=== PATIENT | male | born 1950 | race Caucasian/White ===

== ENCOUNTER 2023-12-19 04:53 | Inpatient (IN) | payer MEDICARE, OTHER, SELFPAY ==
[2023-12-19] VITALS (25 sets, daily range): BP systolic 101–143; BP diastolic 61–86; BMI 23.0
[2023-12-19] MEDS: MORPHINE SULFATE 2 MG IV (01:46)
[2023-12-19 01:57] LABS: % Basophils 0.1 % (0-2); % Immature Granulocytes 0.2 % (0-0.5); % Lymphocytes 6.4 % (20.5-51.1); % Monocytes 5.4 % (1.7-9.3); % Neutrophils 87.9 % (42.2-75.2); Absolute Lymphocytes 0.5 10^3/uL (1.2-3.4); Absolute Monocytes 0.5 10^3/uL (0.1-0.6); Absolute Neutrophils 7.3 10^3/uL (1.4-6.5); Hematocrit 31.2 % (39.0-52.0); Hemoglobin 11.4 g/dL (13.0-18.0); Mean Corp Hgb Conc. 36.5 g/dL (33.0-37.0); Mean Corpuscular Hgb 32.2 pg (27.0-31.0); Mean Corpuscular Volume 88.1 fL (80.0-94.0); Mean Platelet Volume 8.1 fL (7.4-10.4); Nucleated Red Blood Cells % 0 % (-); Platelet Count 134 10^3/uL (130-400); Red Blood Cell Count 3.54 10^6/uL (4.70-6.10); Red Cell Dist. Width 13.3 % (11.5-14.5); White Blood Cell Count 8.3 10^3/uL (4.8-10.8)
[2023-12-19 02:12] LABS: ALT (SGPT) < 10 U/L (0-50); AST (SGOT) 19 U/L (17-59); Albumin 4.4 g/dl (3.5-5.0); Alkaline Phosphatase 54 U/L (38-126); Blood Urea Nitrogen 29 mg/dl (9-20); Calcium 9.8 mg/dl (8.4-10.2); Carbon Dioxide 19 mmol/L (22-30); Chloride 108 mmol/L (98-107); Estimated Creatinine Clearance 87 ml/min; Glucose 127 mg/dl (70-99); Potassium 4.2 mmol/L (3.5-5.1); Sodium 136 mmol/L (135-145); Total Bilirubin 0.7 mg/dl (0.2-1.3); Total Protein 6.5 g/dl (6.3-8.2); eGFR > 60.00
[2023-12-19] MEDS: DILAUDID 1 MG IV ×2 (02:29→05:48)
[2023-12-19] MEDS: ZOFRAN 4 MG IV (02:29)
[2023-12-19] MEDS: NSS 1000 IV ×3 (02:29→12:29)
--- NOTE | 2023-12-19 02:33 | ED.GENMED ---
History of Present Illness
General
Chief Complaint: Fall
Source: patient
Exam Limitations: none
Time Seen by Provider: 12/19/23 02:16
History of Present Illness
History of Present Illness:
This is a 73 year old male that comes in by ambulance with c/o right hip pain. States that his roommate was in the [facility] for about 45 min. The patient states that he has an over active bladder and he couldn't wait any longer. States that he got up and
ran to the [place] and tripped. States that he landed on his right hip on the hard concrete. States that he did not hit his head or have any LOC. Denies any fever, chills, chest pain, SOB, abd pain, nausea, vomiting, diarrhea, headache, dizziness,
urinary burning.
Past History
Past History
ED Past Medical History: CVA and Other (Hepatitis C, alcohol abuse)
ED Past Surgical History: Orthopedic (left knee replacement)
Social History
Tobacco: Former smoker
Alcohol: Occasional
Drug: None
Personal: Single
Living: halfway ([facility] )
Employment: Employed
Family History
Family History: CAD
Review of Systems
Review of Systems
All Other Systems: ROS reviewed and negative except as documented in HPI and ROS
Constitutional: Reports no symptoms; Denies fever or chills
EENT: Reports no symptoms
Respiratory: Reports no symptoms; Denies cough or trouble breathing
Cardiac: Reports no symptoms; Denies chest pain
ABD/GI: Reports no symptoms; Denies abdominal pain, nausea, vomiting or diarrhea
: Reports no symptoms; Denies dysuria, frequency or urgency
Musculoskeletal: Reports joint pain (Right hip pain)
Skin: Reports no symptoms
Neurological: Reports no symptoms; Denies dizzy or headache
Psychiatric: Reports no symptoms
Phy Exam
General Physical Exam
General Presentation: mild distress
General age: appears stated age
General Skin: warm and dry
General Habitus: elderly
General Mental: alert
General Hydration: appears well hydrated
ENT Exam
ENT Exam: TM's normal, pharynx normal and neck supple
Eye Exam
Eye Exam: EOMI
Cardiovascular Exam
Cardiovascular Exam: regular rate/rhythm, no edema and normal peripheral pulses
Pulmonary Exam
Pulmonary Exam: lungs clear, no respiratory distress, no rales, chest non tender, no crackles, no rhonchi, no wheezing and no cough
Gastrointestinal Exam
Gastrointestinal Exam: normal bowel sounds, non tender, soft, no organomegaly, no pulsatile mass and non distended
Musculoskeletal Exam
Musculoskeletal Exam: no edema and other (Right leg shortened and externally rotated. Obvious deformity. )
Skin Exam
Skin Exam: normal color, warm/dry, no rash and no petechia
Course
Orders/Labs/Results
Orders:
Orders
12/19/23 01:32
Hip, Right 2-3 Views [CR Hip - RT w/wo Pel 2-3 Vw*] Urgent
Comment:
Reason For Exam: pain, injury, S/P fall
Include a pelvis x-ray?: Yes
12/19/23 01:39
Morphine Sulfate 2 mg .ROUTE .STK-MED ONE
12/19/23 01:45
Morphine Sulfate 2 mg IV NOW STA
12/19/23 01:49
CMP [Comprehensive Metabolic Panel] Urgent
Complete Blood Count/With Diff Urgent
12/19/23 02:24
Ondansetron Injectable [Zofran] 4 mg .ROUTE .STK-MED ONE
12/19/23 02:25
HYDROmorphone [Dilaudid] 1 mg .ROUTE .STK-MED ONE
12/19/23 02:26
0.9% Sodium Chloride 1000 ml [Nss] 1,000 ml IV BOLUS
HYDROmorphone [Dilaudid] 1 mg IV NOW STA
Ondansetron Injectable [Zofran] 4 mg IV NOW STA
12/19/23 02:32
Consult Orthopedic [ORTHOPEDIC CONSULT] Urgent
Consulting Provider: Venkata Linder
Was physician already notified: Yes
12/19/23 02:44
Electrocardiogram (*1) Urgent
Reason for Study: PreOp
EKG- Treatment ONCE
Abnormal Lab Results
12/19/23
01:49
RBC 3.54 L 10^6/uL
(4.70-6.10)
Hgb 11.4 L g/dL
(13.0-18.0)
Hct 31.2 L %
(39.0-52.0)
MCH 32.2 H pg
(27.0-31.0)
Absolute Neuts (auto) 7.3 H 10^3/uL
(1.4-6.5)
Absolute Lymphs (auto) 0.5 L 10^3/uL
(1.2-3.4)
Neutrophils % 87.9 H %
(42.2-75.2)
Lymphocytes % 6.4 L %
(20.5-51.1)
Chloride 108 H mmol/L
(98-107)
Carbon Dioxide 19 L mmol/L
(22-30)
BUN 29 H mg/dl
(9-20)
Glucose 127 H mg/dl
(70-99)
12/19/23 01:49
12/19/23 01:49
H/H slightly low. Carbon dioxide low. Dehydration. Glucose nonfasting.
Vital Signs
Initial and Last Documented VS:
Initial Vital Signs
Temp Pulse Resp BP Pulse Ox
98.0 F 76 16 143/79 98
12/19/23 01:02 12/19/23 01:02 12/19/23 01:02 12/19/23 01:02 12/19/23 01:02
Last Documented Vital Signs
Temp Pulse Resp BP Pulse Ox
98.0 F 71 16 134/74 99
12/19/23 01:02 12/19/23 02:32 12/19/23 01:02 12/19/23 02:32 12/19/23 02:32
MDM/Problems Addressed
Differential Diagnosis Includes:
Right hip fracture. Hip dislocation.
MDM/Problems Addressed:
This is a 73 year old male that was running to the [employer] and tripped and fell on the left hip.
Will get labs, X-ray.
Back into see patient. Explained that he has a right hip fracture. Message sent to Orthopedics and hospitalist and will admit patient.
Chronic conditions affecting care:
NA
Acute Exacerbation and/or Progression of Chronic Illness:
NA
*Radiology
Radiology exam reviewed: preliminary read by ED provider (right hip=Intertrochanteric hip fracture. )
*Pulse Oximetry
Patient hypoxic: no
*EKG
Interpreted by ED Provider?: Yes
Heart Rate: 81
Rate: normal
Rhythm: sinus
[place]: normal axis
Interval: normal interval
QRS Pattern: normal QRS
Ischemia: non-specific ST changes (V4, V5, V6, Checked by Dr. Gupta)
*Maintenance Technician 2Nd Shift Interpretation
Rate: Maintenance Technician 2Nd Shift- N/A
*Critical Care Note
Total Time (30-74mins, 75-104mins- exclusive of procedures): Not Applicable
ED Attending Note
-
Portions of this chart may have been created with voice recognition software.� Occasional wrong word or��sound alike� substitutions may have occurred due to the inherent limitations of voice recognition software.
Discharge Plan
Departure
Patient Disposition: Admit
Date of Disposition: 12/19/23
Time of Disposition: 02:45
Admit to: Med/Surg
Presentation/result/management discussed w/ accepting MD/DO: Hospitalist
Patient with high blood pressure during this ER visit?: Yes
Condition: Good
Covid-19: Not Applicable
Discharge Problem:
Closed fracture of right hip
Prescriptions:
No Action
thiamine HCl (vitamin B1) 100 MG tablet
100 mg PO DAILY Qty: 30 0RF
folic acid 1 MG tablet
1 mg PO DAILY Qty: 30 0RF
atorvastatin 40 mg Tablet
40 mg PO QPM
tamsulosin [Flomax] 0.4 mg Capsule
0.4 mg PO DAILY
meclizine 25 mg Tablet
25 mg PO BID
finasteride 5 mg Tablet
5 mg QHS
aspirin 81 mg Capsule
81 mg PO DAILY
alprazolam [Xanax] 0.5 mg Tablet
0.5 mg PO DAILY
magnesium hydroxide [Milk of Magnesia] 400 mg/5 mL Suspension
1,200 mg PO PRN PRN (Reason: constipation)
Rx Instructions:
Give 30ml by mouth as needed for constipation once if no BM X 3 days
bisacodyl [Dulcolax (bisacodyl)] 10 mg Suppository
10 mg HI DAILY PRN (Reason: constipation)
Patient Comments:
Insert 1 suppository rectally as needed for constipation once if MOM ineffective
Fleet Enema 19-7 gram/118 mL Enema
118 ml HI DAILY PRN (Reason: constipation)
Rx Instructions:
Insert 1 each rectally as needed for constipation once dulcolax ineffective as per facility
Interventions
Interventions:
*Risk Screen - Suicide Last Done: 12/19/23 01:02
*General Assessment Last Done: 12/19/23 01:02
*Neglect/Abuse Screening Last Done: 12/19/23 01:02
*ED COVID-19 Vaccine History Last Done: 12/19/23 01:02
ED-Musculoskeletal Assessment Last Done: 12/19/23 01:16
ED- Neurological Assessment Last Done: 12/19/23 01:54
Discharge Date and Time
Print Language: GEORGIAN
--- NOTE | 2023-12-19 03:45 | HPS.HSE ---
Family Physician
-
Family Physician:
Chief Complaint
-
Fall and Rt Hip pain
History of Present Illness
73M HX overactive bladder , ETOH use disorder , HX CVA , chr gait dysfucntion , HX LT Knee arthoplasty [facility] for evalautionn of fall and Rt Hip pain.
Per patient , he went to [facility], tripped and fall on the Rt Hip on the concrete floor .
Denied head strike.
ROS
Denies any fever, chills, chest pain, SOB, abd pain, nausea, vomiting, diarrhea, headache, dizziness, urinary burning.
Medical History
Past Medical History
Past Medical History: Reports Other
Additional Past Medical History:
CVA (2020)
Depression,
Alcohol abuse
Ex-smoker
Hepatitis C,
Chronic ambulatory dysfunction uses walker
Past Surgical History: Reports Orthopedic ((Left knee arthroscopy)) and Other
Social History
Tobacco: Former Smoker
Alcohol: Daily
Drug: None
Family History
Family History: Not pertinent
Allergies / Home Medications
Allergies reflects when Allergies were last updated in [facility].
Home Medications with original date entered in [facility]
Allergy/Medication List:
Allergies
Allergy/AdvReac Type Severity Reaction Status Date / Time
No Known Allergies Allergy Verified 12/19/23 01:10
Home Medications
folic acid 1 mg tablet 1 mg PO DAILY #30 tabs 11/20/21
thiamine HCl (vitamin B1) 100 mg tablet 100 mg PO DAILY #30 tabs 11/20/21
alprazolam 0.5 mg tablet (Xanax) 0.5 mg PO DAILY 12/19/23
aspirin 81 mg capsule 81 mg PO DAILY 12/19/23
atorvastatin 40 mg tablet 40 mg PO QPM 12/19/23
bisacodyl 10 mg rectal suppository (Dulcolax (bisacodyl)) 10 mg PA DAILY PRN constipation 12/19/23
finasteride 5 mg tablet 5 mg QHS 12/19/23
magnesium hydroxide 400 mg/5 mL oral suspension (Milk of Magnesia) 1,200 mg PO PRN PRN constipation 12/19/23
meclizine 25 mg tablet 25 mg PO BID 12/19/23
sodium phosphates 19 gram-7 gram/118 mL enema (Fleet Enema) 118 ml PA DAILY PRN constipation 12/19/23
tamsulosin 0.4 mg capsule (Flomax) 0.4 mg PO DAILY 12/19/23
Review of Systems
-
Constitutional: Reports No Symptoms
EENT: Reports No Symptoms
Respiratory: Reports No Symptoms
Cardiac: Reports No Symptoms
Abdomen/GI: Reports No Symptoms
: Reports No Symptoms
Musculoskeletal: Reports See HPI
Skin: Reports No Symptoms
Neurological: Reports No Symptoms
Endocrine: Reports No Symptoms
Hematologic/Lymphatic: Reports No Symptoms
Psych: Reports No Symptoms
Physical Exam
Vital Signs
Vital Signs
Temp Pulse Resp BP Pulse Ox
98.0 F 71 16 134/74 99
12/19/23 01:02 12/19/23 02:32 12/19/23 01:02 12/19/23 02:32 12/19/23 02:32
Physical Exam
Musculoskeletal: Other (Right leg shortened and externally rotated. Obvious deformity.)
Laboratory Results
-
12/19/23 01:49
12/19/23 01:49
Laboratory Results
Total Bilirubin 0.7 mg/dl (0.2-1.3) 12/19/23 01:49
AST 19 U/L (17-59) 12/19/23 01:49
ALT < 10 U/L (0-50) 12/19/23 01:49
Alkaline Phosphatase 54 U/L (38-126) 07/11/24 01:49
Data Reviewed
-
Lab Data: Labs Reviewed by me
Old Records: Reviewed
Impression/Plan
-
Reviewed VS: stable
Data
nl WCC
Hgb 11.4 - baseline 9s-10s
Cl 108
CO2 19
BUN 29
nl Cr
nl LFts
ASSESSMENT & PLAN
Closed Rt Hip Fx
S.P mechanical fall onthe cement floor
Denied head strihe, denied LOC
- HX Falls
- HX Chr Ambulatory dysfunction FTT
- RCRI index Class I risk
- Benefits of ORIF outweigh the perforative risks
- Medically acceptable to proceed for OR
- fx set protocol
- NPO and IVF
- narcotic analgesia
- Ortho consulted
Xanax dependent Anxiety
- cont Xanax
HX ETOH use disorder
Reports cessation of ETOH for last 4 moths
S/P IP Detox at rehab
- observe
HX BPH
- cont Flomax
HX CVA 2020 chronic ambulatory dysfunction
Uses walker at baseline, although is noncompliant at home
HX Hepatitis C
Reports treated with interferon in 2011 in [facility]
Former smoker
2 pack/day x 20 years quit 25 years ago
HX Depression
DVT Px: SCD
Code: Full
IP MS
--- NOTE | 2023-12-19 07:46 | W.PN.UPDATE ---
Update Note
Progress Note Update
Patient unfortunately sustained right hip intertrochanteric fracture which is going to require open reduction internal fixation with gamma nail today. He will remain n.p.o. for now and antibiotics on-call to operating room. Surgical location was
marked and surgery consent signed by patient.
[2023-12-19] MEDS: ANCEF 10 IV (11:15)
[2023-12-19] MEDS: DILAUDID 0.5 MG IV (12:21)
--- NOTE | 2023-12-19 12:58 | W.PN.UPDATE ---
Update Note
Progress Note Update
Nonbillable note.
Patient has been seen and examined at bedside
73-year-old male with history of alcohol, overactive bladder, CVA, chronic gait dysfunction, knee arthroplasty came to the hospital after a fall with right hip pain. Has right hip fracture. Plan for OR today. Patient at this time denies any chest
pain, shortness of breath. DVT prophylaxis post OP Per Ortho.
General: No acute distress
HEENT: Anicteric, pink conjunctiva
Cardiovascular: Regular rate rhythm, no murmur
Respiratory: Clear to auscultation, no wheezing
GI: Soft, nontender, nondistended
: No [place]
Neuro: AAOX3
Psych: calm
--- NOTE | 2023-12-19 13:27 | PTCARENOTE ---
pt. attempted to void, unable, abd. firm, bladder scanned for 688ml urine.
--- NOTE | 2023-12-19 14:04 | PTCARENOTE ---
straight cath attempted x2 unable to pass catheter, pt. tolerated procedure without difficulty.
--- NOTE | 2023-12-19 14:26 | PTCARENOTE ---
pt. straight cathed with coude catheter for 825ml urine, pt. tolerated procedure without difficulty.
--- NOTE | 2023-12-19 16:01 | PTCARENOTE ---
awaiting call back from RN
[2023-12-19] MEDS: LIPITOR 40 MG PO (17:30)
[2023-12-19] MEDS: ASPIRIN 325 MG PO (17:30)
[2023-12-19] MEDS: COLACE PO (21:04)
[2023-12-19] MEDS: PROSCAR 5 MG PO (21:08)
[2023-12-20] VITALS (7 sets, daily range): BP systolic 106–135; BP diastolic 61–67; PULSE 67; O2SAT 98
[2023-12-20] MEDS: NSS 1000 IV (02:19)
[2023-12-20 05:51] LABS: % Basophils 0.1 % (0-2); % Immature Granulocytes 0.3 % (0-0.5); % Lymphocytes 9.7 % (20.5-51.1); % Monocytes 11.5 % (1.7-9.3); % Neutrophils 78.4 % (42.2-75.2); Absolute Lymphocytes 0.7 10^3/uL (1.2-3.4); Absolute Monocytes 0.8 10^3/uL (0.1-0.6); Absolute Neutrophils 5.7 10^3/uL (1.4-6.5); Hematocrit 25.2 % (39.0-52.0); Hemoglobin 9.2 g/dL (13.0-18.0); Mean Corp Hgb Conc. 36.5 g/dL (33.0-37.0); Mean Corpuscular Hgb 33.1 pg (27.0-31.0); Mean Corpuscular Volume 90.6 fL (80.0-94.0); Mean Platelet Volume 8.8 fL (7.4-10.4); Nucleated Red Blood Cells % 0 % (-); Platelet Count 119 10^3/uL (130-400); Red Blood Cell Count 2.78 10^6/uL (4.70-6.10); Red Cell Dist. Width 13.2 % (11.5-14.5); White Blood Cell Count 7.3 10^3/uL (4.8-10.8)
[2023-12-20 06:17] LABS: Blood Urea Nitrogen 18 mg/dl (9-20); Carbon Dioxide 24 mmol/L (22-30); Chloride 107 mmol/L (98-107); Estimated Creatinine Clearance 100 ml/min; Glucose 119 mg/dl (70-99); Potassium 4.6 mmol/L (3.5-5.1); Sodium 136 mmol/L (135-145); eGFR > 60.00
[2023-12-20] MEDS: FLOMAX PO (07:12)
[2023-12-20] MEDS: XANAX PO (07:12)
--- NOTE | 2023-12-20 07:48 | W.PN.ORTHO ---
Today's Communication / Plan
-
73-year-old male postop day 1 right cephalomedullary nail fixation with Dr. Linder
-DVT prophylaxis ASA per primary for 30 days
-Weightbearing as tolerated right lower extremity with assist devices as indicated; PT/OT/discharge planning
-Pain controlled with current regimen
-Orthopedic surgery will continue to follow
Assessment
.
Distal Motor Intact: Yes
Dressing:
Clean, dry and intact. Minimal central strikethrough
Plan
.
Surgery / Date: R hip CMN 12/19/23 w/ Dr. Linder
Activity:
Out of bed.
PT/OT
Subjective
.
.:
Patient resting comfortably.
Vital Signs and Labs
.
Vital Signs and Labs:
Lab Results
12/20/23 05:21
12/20/23 05:21
Temp Pulse Resp BP Pulse Ox
98.5 F 80 16 110/62 99
12/20/23 07:31 12/20/23 07:31 12/20/23 07:31 12/20/23 07:31 12/20/23 07:31
[2023-12-20] MEDS: COLACE 100 MG PO (09:47)
[2023-12-20] MEDS: FLOMAX 0.4 MG PO (09:47)
[2023-12-20] MEDS: XANAX 0.5 MG PO (09:47)
[2023-12-20] MEDS: ASPIRIN 325 MG PO (09:47)
--- NOTE | 2023-12-20 09:58 | W.PN.HOSP.TC ---
Today's Communication/Plan
-
dispo planning
Assessment / Plan
Assessment / Plan
ASSESSMENT & PLAN
Closed Rt Hip Fx
s/p mechanical fall on the cement floor
denied hitting head
- HX Falls
- HX Chr Ambulatory dysfunction FTT
- now s/p right cephalomedullary nail fixation with Dr. Linder on 12/18
- asa for DVT PPx
- PT/OT - possibly home with HH - will follow up
Xanax dependent Anxiety
- cont Xanax
HX ETOH use disorder
Reports cessation of ETOH for last 4 moths
S/P IP Detox at rehab
- observe
HX BPH
- cont Flomax
HX CVA 2020 chronic ambulatory dysfunction
Uses walker at baseline, although is noncompliant at home
HX Hepatitis C
Reports treated with interferon in 2011 in [facility]
Former smoker
2 pack/day x 20 years quit 25 years ago
HX Depression
DVT Px: SCD
Code: Full
IP MS
Anticipated Discharge: Within 24 hours
Subjective/Interval History
-
Date of Service: December 20, 2023
feeling well
denies significant pain
Objective Data
-
Labs:
Laboratory Results
12/20/23
05:21
WBC 7.3
Hgb 9.2 L
Hct 25.2 L
Plt Count 119 L
Sodium 136
Potassium 4.6
Chloride 107
Carbon Dioxide 24
BUN 18
Creatinine 0.7
Glucose 119 H
Calcium 9.0
Vital Signs:
Vital Signs
Temp Pulse Resp BP Pulse Ox
98.5 F 80 16 110/62 99
12/20/23 07:31 12/20/23 07:31 12/20/23 07:31 12/20/23 07:31 12/20/23 07:31
I&O
12/19/23 12/20/23 12/21/23
06:59 06:59 06:59
Intake Total 1820 / 1820
Output Total 1075 / 1075
Balance 745 / 745
Review of Systems
-
History Source: Patient
All other systems: Reviewed and negative
Physical Exam
-
General: No Apparent Distress and Conversant
HEENT: PERRLA
Respiratory: Clear to Auscultation; Negative Wheezes
Cardiac: Regular Rhythm and S1/S2
GI: Soft and Nontender
Musculoskeletal: No Edema
Skin: Warm and Dry; Negative Rash
Neuro: AO x 3
Psych: Calm
Data Reviewed
-
Diagnostic Radiology: Report Reviewed by me
Labs: Labs Reviewed by me
--- NOTE | 2023-12-20 11:25 | CM ---
Addendum entered by Radha Ngo RN 12/20/23 15:15:
IMM signed and placed on chart.
Original Note:
Reviewed the chart notes and spoke with the patient at the bedside. The patient resides as a senior living resident of [facility]. The patient reports using a rolling walker at baseline. Per [place], admissions liaison, bed hold in place. CM continues to be
available to patient/family and is monitoring medical plan for needs at discharge.
Plan: Discharge back to [facility] when medically stable.
--- NOTE | 2023-12-20 13:00 | PN.CDI ---
CDI
- -
CDI:
Physician Documentation Request
Admit Date: 12/19/23 04:53
Dear Doctor Stone,
Please review the following and provide your response in the progress notes.
Clinical Indicators:
12/18 PROCEDURE:
#...Right hip talha construct for comminuted intertrochanteric fracture.
#BLOOD LOSS: 40 mL.
Laboratory Tests
12/19/23 12/20/23
01:49 05:21
Hgb 11.4 L 9.2 L
Based on the above, please clarify which of the following is the most likely condition/diagnosis evaluated, monitored and/or treated?
Acute blood loss anemia with baseline chronic anemia (Specify type)
Abnormal lab value, clinically insignificant
Other(please specify)
Use of terms such as suspected, likely, concern for, or probable (associated with a specific diagnosis that is being evaluated, monitored, or treated as if it exists) are acceptable and can be coded in the inpatient setting, when documented at the
time of discharge.
Thank you,
Luna Glez RN BSN CCDS
CDI Specialist
please contact via tiger text
Please use your independent medical judgment in providing your response.
--- NOTE | 2023-12-20 13:05 | PN.CDI ---
CDI
- -
CDI:
Physician Documentation Request
Admit Date: 12/19/23 04:53
Dear Doctor Stone,
Please review the following and provide your response in the progress notes.
Clinical Indicators:
PN, 12/19
#Closed Rt Hip Fx
#...s/p mechanical fall on the cement floor
#- HX Chr Ambulatory dysfunction FTT
#HX CVA 2020 chronic ambulatory dysfunction
#Uses walker at baseline, although is noncompliant at home
Please clarify the following the etiology of the right hip(femur) fracture:
Multifactorial due to trauma and age related and/or osteoporosis of disuse
Traumatic fracture only
Other (please specify)
Type Fracture
Age-related With current pathological fx
Drug induced (specify drug) without current pathological fx
Idiopathic
Osteoporosis of disuse
Post traumatic
Use of terms such as suspected, likely, concern for, or probable (associated with a specific diagnosis that is being evaluated, monitored, or treated as if it exists) are acceptable and can be coded in the inpatient setting, when documented at the
time of discharge.
Thank you,
Luna Glez RN BSN CCDS
CDI Specialist
please contact via tiger text
Please use your independent medical judgment in providing your response.
[2023-12-20] MEDS: LIPITOR 40 MG PO (18:38)
[2023-12-20] MEDS: TYLENOL 650 MG PO (18:39)
[2023-12-20] MEDS: PROSCAR 5 MG PO (21:17)
[2023-12-20] MEDS: COLACE PO (21:17)
[2023-12-20] MEDS: ROXICODONE 10 MG PO (23:41)
[2023-12-21] MEDS: ROXICODONE 10 MG PO ×2 (06:16→12:59)
[2023-12-21 07:55] VITALS: BP 104/53
--- NOTE | 2023-12-21 08:08 | W.PN.ORTHO ---
Today's Communication / Plan
-
POD #2 s/p right hip gamma nail.
-WBAT with walker.
-PT/OT to tolerance.
-Aspirin 325 mg po daily x 4 weeks for dvt prophylaxis.
-Continue current pain regimen.
-Appreciate case management efforts in d/c planning - plan to return to [facility] when stable.
-Julia to be removed in 2 weeks. If able to be done at facility, f/u in office in 4 weeks for repeat x-rays.
-D/c when medically stable.
-Will sign off from ortho standpoint for now.
Assessment
.
Distal Motor Intact: Yes
Dressing:
Clean, dry and intact.
Assessment:
POD #2 s/p right hip gamma nail.
-WBAT with walker.
-PT/OT to tolerance.
-Aspirin 325 mg po daily x 4 weeks for dvt prophylaxis.
-Continue current pain regimen.
-Appreciate case management efforts in d/c planning - plan to return to [facility] when stable.
-Julia to be removed in 2 weeks. If able to be done at facility, f/u in office in 4 weeks for repeat x-rays.
-D/c when medically stable.
-Will sign off from ortho standpoint for now.
Plan
.
Surgery / Date: R hip CMN 12/19/23 w/ Dr. Linder
DVT Prophylaxis: Aspirin
Activity:
Out of bed.
PT/OT
Discharge Plan: SNF
Subjective
.
.:
Patient resting comfortably in bed. Reports pain currently controlled, but had episode of severe pain overnight. This was alleviated with use of pain medication. was able to do PT with minimal difficulty yesterday. Resides at [facility]
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
Vital Signs and Labs
.
Vital Signs and Labs:
Lab Results
12/20/23 05:21
12/20/23 05:21
Temp Pulse Resp BP Pulse Ox
98.6 F 78 16 104/53 93
12/21/23 07:55 12/21/23 07:55 12/21/23 07:55 12/21/23 07:55 12/21/23 07:55
Physical Exam
-
Right hip: Aquacel dressings intact. Stable drainage. Moderate swelling of thigh. Calf is soft and non tender to palpation. N/v intact distally.
[2023-12-21] MEDS: ASPIRIN 325 MG PO (08:54)
[2023-12-21] MEDS: XANAX 0.5 MG PO (08:54)
[2023-12-21] MEDS: FLOMAX 0.4 MG PO (08:54)
[2023-12-21] MEDS: TYLENOL 650 MG PO (08:55)
[2023-12-21] MEDS: COLACE 100 MG PO (08:55)
--- NOTE | 2023-12-21 09:33 | W.PN.HOSP.TC ---
Addendum entered and electronically signed by Kathi Ritter MD 12/21/23 13:41:
hip fracture
Multifactorial due to trauma and age related and/or osteoporosis of disuse
Acute blood loss anemia post-op
-Hg stable prior to DC
Original Note:
Today's Communication/Plan
-
OK for DC back to [facility] today
Assessment / Plan
Assessment / Plan
ASSESSMENT & PLAN
Closed Rt Hip Fx
s/p mechanical fall on the cement floor
denied hitting head
- HX Falls
- HX Chr Ambulatory dysfunction FTT
- now s/p right cephalomedullary nail fixation with Dr. Linder on 12/18
- asa for DVT PPx
- PT/OT - back to [facility]
Xanax dependent Anxiety
- cont Xanax
HX ETOH use disorder
Reports cessation of ETOH for last 4 moths
S/P IP Detox at rehab
HX BPH
- cont Flomax
HX CVA 2020 chronic ambulatory dysfunction
Uses walker at baseline, although is noncompliant at home
recent CVA 3 months ago - has been at [facility]
HX Hepatitis C
Reports treated with interferon in 2011 in [facility]
Former smoker
2 pack/day x 20 years quit 25 years ago
HX Depression
DVT Px: SCD
Code: Full
IP MS
Anticipated Discharge: Today
Subjective/Interval History
-
Date of Service: December 21, 2023
feeling well
pain controlled with oxycodone
no fevers/chills
ready to go back to [facility]
Objective Data
-
Labs:
Laboratory Results
12/21/23
09:22
Hgb Pending
Vital Signs:
Vital Signs
Temp Pulse Resp BP Pulse Ox
98.6 F 78 16 104/53 93
12/21/23 07:55 12/21/23 07:55 12/21/23 07:55 12/21/23 07:55 12/21/23 07:55
I&O
12/20/23 12/21/23 12/22/23
06:59 06:59 06:59
Intake Total 1820 / 1820 900 / 900
Output Total 1075 / 1075 1375 / 1375
Balance 745 / 745 -475 / -475
Review of Systems
-
History Source: Patient
All other systems: Reviewed and negative
Physical Exam
-
General: No Apparent Distress and Conversant
HEENT: PERRLA
Respiratory: Clear to Auscultation; Negative Wheezes
Cardiac: Regular Rhythm and S1/S2
GI: Soft and Nontender
Musculoskeletal: No Edema
Skin: Warm and Dry; Negative Rash
Neuro: AO x 3
Psych: Calm
Data Reviewed
-
Diagnostic Radiology: Report Reviewed by me
Labs: Labs Reviewed by me
--- NOTE | 2023-12-21 09:45 | W.DS.TRANS ---
DC Summary - Complaint Adjuster
-
Discharge Instructions:
Discharge Diagnosis/Procedures right hip fracture status post cephalomedullary
nail fixation with Dr. Linder 12/19/23
Diet Regular
Activity As tolerated
Driving Restrictions No driving
Bathing Restrictions None
Others Tests follow up x-ray to be ordered by Dr. Linder
Other Services PT,OT
Instructions:
Stand-Alone Forms:
Changes to Home Medications: Yes
Discharge Medications:
DC Medications w/original date entered in [employer]
acetaminophen 325 mg tablet (Tylenol) 650 mg PO Q6HPRN PRN mild pain 12/19/23
alprazolam 0.5 mg tablet (Xanax) 0.5 mg PO DAILY Mental Health/Anxiety 12/19/23
aspirin 81 mg tablet,delayed release 81 mg PO DAILY Blood Clot Prevention/Tx 12/19/23
atorvastatin 40 mg tablet 40 mg PO HS High Cholesterol 12/19/23
bisacodyl 10 mg rectal suppository (Dulcolax (bisacodyl)) 10 mg ID DAILYPRN PRN if no bm aftr mom 12/19/23
finasteride 5 mg tablet 5 mg PO HS 12/19/23
magnesium hydroxide 400 mg/5 mL oral suspension (Milk of Magnesia) 1,200 mg PO DAILYPRN PRN if no bm on 3rd day 12/19/23
meclizine 25 mg tablet 25 mg PO BID DIZZINESS 12/19/23
sodium phosphates 19 gram-7 gram/118 mL enema (Fleet Enema) 118 ml ID DAILYPRN PRN if no bm aftr dulcolax 12/19/23
tamsulosin 0.4 mg capsule (Flomax) 0.4 mg PO DAILY Urinary Issue 12/19/23
folic acid 1 mg tablet 1 mg PO DAILY Supplement 12/20/23
thiamine HCl (vitamin B1) 100 mg tablet 100 mg PO DAILY Supplement 12/20/23
aspirin 325 mg tablet 325 mg PO DAILY #28 tabs 12/21/23
oxycodone 10 mg tablet 5 mg (1/2 x 10 mg) PO Q6HPRN PRN moderate/severe pain #10 tabs 12/21/23
polyethylene glycol 3350 17 gram oral powder packet (HealthyLax) 17 g PO DAILYPRN PRN constipation #14 ea 12/21/23
Home Medication Changes
Stop aspirin 81mg while on high dose aspirin for next month. After you complete course of aspirin 325mg (28 more days) then resume lower dose aspirin for stroke prevention
addition of oxycodone PRN
Miralax PRN
Pending Results: No
[2023-12-21 11:49] VITALS: BP 115/66
--- NOTE | 2023-12-21 13:41 | W.DCSUMMARY ---
Discharge Summary
Discharge Data
Date of Admission: 12/19/23
Date of Discharge: 12/21/23
-
Pending Results: No
Hospital Course
Discharging Physician : Dr. Kathi Ritter
Disposition : SNF
Primary care physician : Dr. Yoni Duong
Principal Discharge diagnosis : s/p right hip gamma nail on 12/19/23
Hospital Course :
Mr. Chu Wilcox is a 73 yo man with hx alcohol use disorder, CVA, chronic gait dysfunction presents after a fall and right hip pain. Hip X-Ray with right proximal femur fracture. He was admitted to medicine with ortho consulting and
underwent right hip gamma nail on 12/19/23. Patient did well post-op and will be discharged back to SNF. He is on asa 325mg x 30 days for DVT PPx (resume home dosing aspirin 81mg post this course). Oxycodone prescribed for pain.
Julia to be removed in 2 weeks, can be done at facility. He will follow up with Ortho in office in 4 weeks for repeat x-rays.
Time spent on discharge was 35 minutes.
Important imaging findings :
HIP X-RAY 12/19/23
IMPRESSION: Comminuted intertrochanteric fracture of the right proximal femur.
Procedure findings :
Discharge Plan
-
Patient Disposition: [facility]/SNF
Discharge Diagnosis/Procedures: right hip fracture status post cephalomedullary nail fixation with Dr. Linder 12/19/23
Diet: Regular
Activity: As tolerated
Driving Restrictions: No driving
Bathing Restrictions: None
Others Tests: follow up x-ray to be ordered by Dr. Linder
Other Services: PT and OT
Activity Restrictions/Additional Instructions:
Julia to be removed in 2 weeks at facility.
Referrals:
Yoni Duong MD [Family Provider] - in less than 1 week
Venkata Linder MD [Active] - in three to four weeks
Additional Discharge Medication Instructions: Stop aspirin 81mg while on high dose aspirin for next month. After you complete course of aspirin 325mg (28 more days) then resume lower dose aspirin for stroke prevention
Prescriptions:
New
polyethylene glycol 3350 [HealthyLax] 17 gram Powder In Packet
17 g PO DAILYPRN PRN (Reason: constipation) Qty: 14 0RF
aspirin 325 mg Tablet
325 mg PO DAILY Qty: 28 0RF
oxycodone 10 mg Tablet
5 mg PO Q6HPRN PRN (Reason: moderate/severe pain) Qty: 10 0RF
Rx Instructions:
5mg(1/2 tab)for mod pain, 10mg(1 tab)for severe pain
Continued
atorvastatin 40 mg Tablet
40 mg PO HS
tamsulosin [Flomax] 0.4 mg Capsule
0.4 mg PO DAILY
meclizine 25 mg Tablet
25 mg PO BID
finasteride 5 mg Tablet
5 mg PO HS
alprazolam [Xanax] 0.5 mg Tablet
0.5 mg PO DAILY
magnesium hydroxide [Milk of Magnesia] 400 mg/5 mL Suspension
1,200 mg PO DAILYPRN PRN (Reason: if no bm on 3rd day)
Rx Instructions:
Give 30ml by mouth as needed for constipation once if no BM X 3 days
bisacodyl [Dulcolax (bisacodyl)] 10 mg Suppository
10 mg SC DAILYPRN PRN (Reason: if no bm aftr mom)
Fleet Enema 19-7 gram/118 mL Enema
118 ml SC DAILYPRN PRN (Reason: if no bm aftr dulcolax)
Rx Instructions:
Insert 1 each rectally as needed for constipation once dulcolax ineffective as per facility
acetaminophen [Tylenol] 325 mg Tablet
650 mg PO Q6HPRN PRN (Reason: mild pain)
thiamine HCl (vitamin B1) 100 MG tablet
100 mg PO DAILY
folic acid 1 MG tablet
1 mg PO DAILY
Held
aspirin 81 mg Tablet,Delayed Release (Dr/Ec)
81 mg PO DAILY
Hold Instructions: Resume on 01/19/24.
Discharge Orders:
Discharge Patient (As Directed); Ordered 12/21/23
Ordered By: Kathi Ritter
Discharge Date and Time
Print Language: HUNGARIAN
--- NOTE | 2023-12-21 15:51 | CM ---
Pt dc to [facility] via stretcher. Med Necessity filled out and provided.
IMM previously completed and on chart.
No further needs identified.
== END 2023-12-21 14:10 | DRG 481 ==
LOC: 2 SOUTH 04:53
PROVIDERS: Internal Medicine; ADMITTING PHYSICIAN Internal Medicine; ATTENDING PHYSICIAN Student in an Organized Health Care Education/Training Program; CONSULT PHYSICIAN Orthopaedic Surgery; EMERGENCY PHYSICIAN Emergency Medicine; FAMILY PHYSICIAN Internal Medicine
PROC: 0QS604Z Reposition Right Upper Femur with Internal Fixation Device, Open Approach (ICD-10-PCS; 2023-12-19)
DX: S72.141A Displaced intertrochanteric fracture of right femur, initial encounter for closed fracture (principal); D62 Acute posthemorrhagic anemia; M80.051A Age-related osteoporosis with current pathological fracture, right femur, initial encounter for fracture; F10.11 Alcohol abuse, in remission; F32.A Depression, unspecified; W01.0XXA Fall on same level from slipping, tripping and stumbling without subsequent striking against object, initial encounter; Y92.129 Unspecified place in nursing home as the place of occurrence of the external cause; N40.1 Benign prostatic hyperplasia with lower urinary tract symptoms; N32.81 Overactive bladder; F41.9 Anxiety disorder, unspecified; R26.89 Other abnormalities of gait and mobility; Z99.89 Dependence on other enabling machines and devices; Z96.652 Presence of left artificial knee joint; Z79.82 Long term (current) use of aspirin; Z79.899 Other long term (current) drug therapy; Z87.891 Personal history of nicotine dependence; Z86.73 Personal history of transient ischemic attack (TIA), and cerebral infarction without residual deficits; Z86.19 Personal history of other infectious and parasitic diseases
CPT/HCPCS: 73502; 73552; 76000; 80048; 80053; 85018; 85025; 87070; 93005; 96374; 96375; 97116; 97162; 97166; 99285; C1713; C1769

== ENCOUNTER 2024-10-05 05:52 | Outpatient (RCR) | payer MEDICARE, OTHER, SELFPAY | END 2024-10-05 23:59 | disposition home or self-care (01) | LOC: RPT 05:52 | PROVIDERS: ATTENDING PHYSICIAN Physician Assistant Medical | DX: R42 Dizziness and giddiness (principal); Z73.6 Limitation of activities due to disability | CPT/HCPCS: 97112; 97162 ==

== ENCOUNTER 2024-11-04 10:18 | Outpatient (RCR) | payer MEDICARE, OTHER, SELFPAY | END 2024-11-04 12:59 | disposition home or self-care (01) | LOC: RPT 10:18 | PROVIDERS: ATTENDING PHYSICIAN Physician Assistant Medical | DX: R42 Dizziness and giddiness (principal); Z73.6 Limitation of activities due to disability; R26.89 Other abnormalities of gait and mobility | CPT/HCPCS: 97112 ==

== ENCOUNTER 2024-12-28 06:20 | Day surgery (SDC) | payer MEDICARE, OTHER, SELFPAY ==
[2024-12-28] VITALS (14 sets, daily range): BP systolic 92–130; BP diastolic 55–77; BMI 22.9; BMI 23.8
[2024-12-28] MEDS: NORMOSOL-R/PLASMALYTE-A 1000 IV (09:10)
--- NOTE | 2024-12-28 10:51 | W.IMMPOSTOP ---
Surgical Immed Post Op Note
-
Primary Surgeon: Sandie
Pre-op Diagnosis: BPH with bothersome LUTS (confirmed on cystoscopy + UDS)
Post-op Diagnosis: Same
Procedure Performed: TUVP
Anesthesia Type: LMA
Specimen / Cultures: Prostate shavings/None
Estimated Blood Loss: Negligible
Drains: 22Fr 3-way catheter (25 cc in balloon)
Complications: None
Operative Findings:
Medium-sized prostate gland w/ coapting lateral lobes and high bladder neck (w/o significant intravesical component) - vaporized with creation of widely patent prostatic urethral channel.
No involvement of bilateral UOs, veru, external urethral sphincter w/n margins of vaporization.
[2024-12-28] MEDS: DETROL LA 4 MG PO (10:59)
--- NOTE | 2024-12-28 15:03 | PTCARENOTE ---
pt admitted from pacu to room 2138. Pt AAOX3, denies pain. CBI infusing via 3 way catheter, urine clear, light pink. pt oriented to room and unit. admission questions went over with patient. pt updated on plan of care.
--- NOTE | 2024-12-28 15:20 | CM ---
Reviewed the chart notes and spoke with the patient at the bedside. The patient resides as a residential resident of [facility]. The patient reports using a rolling walker at baseline. CM continues to be available to patient/family and is monitoring
medical plan for needs at discharge.
Plan: Discharge back to [facility] when medically stable.
[2024-12-28] MEDS: ANTIVERT 25 MG PO (20:58)
[2024-12-28] MEDS: LAC HYDRIN, AM LACTIN LOTION 1 APPLIC TOPICAL (22:45)
[2024-12-28] MEDS: LIPITOR 40 MG PO (22:45)
[2024-12-28] MEDS: PROSCAR 5 MG PO (23:00)
--- NOTE | 2024-12-29 02:35 | DOWNTIME ---
There was a [employer] Downtime on 12/29/2024 from 0100 to 12/29/2024 at 0220. Downtime documentation of patient's care, including medication administrations, has been reconciled in the electronic record per guidelines. Refer to the
patient's paper chart under the miscellaneous tab to see printed paper medication records and downtime forms.
[2024-12-29 06:00] VITALS: BMI 22.7
[2024-12-29 07:35] VITALS: BP 111/60
[2024-12-29 07:43] LABS: Hematocrit 37.0 % (39.0-52.0); Hemoglobin 12.8 g/dL (13.0-18.0); Mean Corp Hgb Conc. 34.6 g/dL (33.0-37.0); Mean Corpuscular Volume 89.2 fL (80.0-94.0); Platelet Count 151 10^3/uL (130-400); Red Cell Dist. Width 13.0 % (11.5-14.5)
[2024-12-29] MEDS: FLOMAX 0.4 MG PO (08:00)
[2024-12-29] MEDS: FOLVITE 1 MG PO (08:00)
[2024-12-29] MEDS: XANAX 0.25 MG PO (08:00)
[2024-12-29] MEDS: ANTIVERT 25 MG PO (08:00)
[2024-12-29] MEDS: VITAMIN B1 100 MG PO (08:00)
[2024-12-29 08:14] LABS: Blood Urea Nitrogen 12 mg/dl (9-20); Calcium 9.5 mg/dl (8.4-10.2); Carbon Dioxide 25 mmol/L (22-30); Chloride 107 mmol/L (98-107); Estimated Creatinine Clearance 85 ml/min; Glucose 111 mg/dl (70-99); Potassium 4.2 mmol/L (3.5-5.1); Sodium 139 mmol/L (135-145); eGFR > 60.00
--- NOTE | 2024-12-29 09:49 | CM ---
Reviewed the chart notes. Referral for return to SNF sent via [facility]. CM continues to be available to patient/family and is monitoring medical plan for needs at discharge.
Plan: Discharge back to [facility] when medically stable. No precert required.
Call report to: [phone]
Fax report to: [phone]
Medical necessity and transport forms on chart.
--- NOTE | 2024-12-29 10:57 | W.DS.TRANS ---
DC Summary - Telephone Interviewer
-
Discharge Instructions:
Sleep Apnea Risk Low
Discharge Diagnosis/Procedures BPH s/p TUVP
Diet Regular
Activity No strenuous activity
Additional Activity No heavy lifting >10 lbs, exercise, or strenuous
activity for 1 week after surgery
Driving Restrictions No driving for 24 hours
Bathing Restrictions None
Blood Work not applicable
Wound Care not applicable
Instructions:
Stand-Alone Forms:
Changes to Home Medications: No
Discharge Medications:
DC Medications w/original date entered in [employer]
acetaminophen 325 mg tablet (Tylenol) 650 mg PO Q6HPRN PRN mild pain/temp> 100 12/19/23
alprazolam 0.5 mg tablet (Xanax) 0.25 mg PO DAILY Mental Health/Anxiety 12/19/23
atorvastatin 40 mg tablet 40 mg PO HS High Cholesterol 12/19/23
bisacodyl 10 mg rectal suppository (Dulcolax (bisacodyl)) 10 mg AK DAILYPRN PRN if no bm aftr mom 12/19/23
finasteride 5 mg tablet 5 mg PO HS 12/19/23
magnesium hydroxide 400 mg/5 mL oral suspension (Milk of Magnesia) 1,200 mg PO DAILYPRN PRN if no bm on 3rd day 12/19/23
meclizine 25 mg tablet 25 mg PO BID DIZZINESS 12/19/23
sodium phosphates 19 gram-7 gram/118 mL enema (Fleet Enema) 118 ml AK DAILYPRN PRN if no bm aftr dulcolax 12/19/23
tamsulosin 0.4 mg capsule (Flomax) 0.4 mg PO DAILY Urinary Issue 12/19/23
folic acid 1 mg tablet 1 mg PO DAILY Supplement 12/20/23
thiamine HCl (vitamin B1) 100 mg tablet 100 mg PO DAILY Supplement 12/20/23
polyethylene glycol 3350 17 gram oral powder packet (HealthyLax) 17 g PO DAILYPRN PRN constipation #14 ea 12/21/23
ammonium lactate 12 % lotion 1 applic topical HS 12/21/24
aspirin 81 mg tablet,delayed release (Ecotrin Low Strength) 81 mg PO DAILY 12/21/24
levofloxacin 500 mg tablet 500 mg PO DAILY 5 days #5 tabs 12/29/24
phenazopyridine 200 mg tablet (Pyridium) 200 mg PO BID PRN dysuria 3 days #6 tabs 12/29/24
Home Medication Changes
Pending Results: Yes
Additional Pending Results:
surgical pathology
Total time spent discharging patient (in min): 35
--- NOTE | 2024-12-29 11:04 | PTCARENOTE ---
Pt is passing urine w/o issue. Denies pain or difficulty. D/C order in and will return to snf via ambulance.
[2024-12-29 15:00] VITALS: BP 116/70
== END 2024-12-29 16:15 | disposition home or self-care (01) ==
LOC: SDS 06:20
PROVIDERS: ATTENDING PHYSICIAN Surgery
DX: N40.1 Benign prostatic hyperplasia with lower urinary tract symptoms (principal); N13.8 Other obstructive and reflux uropathy
CPT/HCPCS: 52601; 80048; 85027; 88305